=== PATIENT | female | born 1960 | race African-American/Black ===

== ENCOUNTER 2016-08-08 19:27 | Emergency (ER) | payer SELFPAY ==
[~2016-08-08] VITALS: Ht 167.6 cm; Wt 113.4 kg
[2016-08-08 20:05] VITALS: BP 133/75
[2016-08-08 20:30] LABS: BASOPHILS % (AUTO) 0.8 % (0.0-2.0); EOSINOPHILS % (AUTO) 5.6 % (0.0-3.0); LYMPHOCYTES % (AUTO) 39.5 % (20.0-45.0); MEAN CORPUSCULAR HEMOGLOBIN 27.7 PG (27.0-31.0); MEAN CORPUSCULAR HGB CONC 32.1 G/DL (32.0-36.0); MEAN CORPUSCULAR VOLUME 86 FL (80-99); MONOCYTES % (AUTO) 7.9 % (1.0-10.0); NEUTROPHILS % (AUTO) 46.2 % (45.0-75.0); PLATELET COUNT 217 K/UL (150-450); RED BLOOD COUNT 4.73 M/UL (4.20-5.40); RED CELL DISTRIBUTION WIDTH 12.6 % (11.6-14.8); WHITE BLOOD COUNT 5.4 K/UL (4.8-10.8)
[2016-08-08 20:40] LABS: TROPONIN I < 0.30 ng/mL (<=0.30)
[2016-08-08 20:43] LABS: ALANINE AMINOTRANSFERASE 10 U/L (3-33); ALBUMIN/GLOBULIN RATIO 1.3 (1.0-2.7); ANION GAP 15 (5-15); ASPARTATE AMINO TRANSFERASE 13 U/L (5-40); CARBON DIOXIDE 27 mEQ/L (20-30); CHLORIDE 99 mEQ/L (98-107); CREATININE 0.8 mg/dL (0.5-0.9); GLOMERULAR FILTRATION RATE > 60 mL/min (>60); HEMOLYSIS 3; POTASSIUM 4.2 mEQ/L (3.4-4.9); SODIUM 141 mEQ/L (135-145); TOTAL PROTEIN 7.5 g/dL (6.6-8.7)
[2016-08-08 20:53] LABS: CKMB < 1.5 ng/mL (< 3.8)
[2016-08-08] MEDS ORDERED: LORazepam Inj 2mg/ml 1ml ONE (21:19)
[2016-08-08 21:30] VITALS: BP 127/68
[2016-08-08] MEDS ORDERED: LORazepam Inj 2mg/ml 1ml IV ONE (21:30)
[2016-08-08] MEDS ORDERED: LORazepam Inj 2mg/ml 1ml IM ONE (21:30)
[2016-08-08 21:36] VITALS: BP 127/68
--- NOTE | 2016-08-08 21:49 | Emergency Room Report ---
History of Present Illness General Chief Complaint: General Complaint Source: Patient, EMS Present Illness HPI Patient presents with complaints of midsternal chest pain which she experienced earlier in the morning That sensation has resolved however the patient was complaining of tingling in her lower extremity Denies any shortness of breath or chest pain at this time denies any fall or trauma Denies any fevers or chills Allergies: Coded Allergies: No Known Allergies (Unverified , 08/08/16) Patient History Past Medical History: see triage record Pertinent Family History: none Now: No Reviewed Nursing Documentation: PMH: Agreed, PSxH: Agreed Nursing Documentation-PMH Past Medical History: No History, Except For Hx Hypertension: Yes Hx Asthma: Yes Hx Diabetes: Yes Hx Seizures: Yes Review of Systems All Other Systems: negative except mentioned in HPI Physical Exam Vital Signs Date Time Temp Pulse Resp B/P Pulse Ox O2 Delivery O2 Flow Rate FiO2 08/08/16 19:16 98.4 74 16 144/83 98 Room Air Sp02 EP Interpretation: reviewed, normal General Appearance: well appearing, no apparent distress Head: normocephalic, atraumatic Eyes: bilateral eye EOMI, bilateral eye PERRL ENT: normal pharynx, no angioedema Neck: supple, thyroid normal, other - Evidence of previous tracheostomy Respiratory: lungs clear, normal breath sounds Cardiovascular #1: regular rate, rhythm, no edema Gastrointestinal: non tender, soft, no mass Musculoskeletal: other - Patient is chronically debilitated, 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, both hands are flexed at the wrist, not moving lower extremities, chronically bedbound Neurologic: alert, oriented x3, responsive Skin: no rash Lymphatic: no adenopathy Medical Decision Making Diagnostic Impression: Primary Impression: chest pain ER Course Patient is a fairly complex patient with multiple differential to consideration including but not limited to cardiac cardiopulmonary and vascular emergencies Patient's blood work is at baseline levels Chest x-ray shows portal and cardiomegaly no other acute disease Patient's pain has been better controlled I did discuss the case with the patient's primary physician at nursing facility and the patient will have continued close outpatient followup Laboratory Tests Test 08/08/16 20:05 White Blood Count 5.4 K/UL (4.8-10.8) Red Blood Count 4.73 M/UL (4.20-5.40) Hemoglobin 13.1 G/DL (12.0-16.0) Hematocrit 40.8 % (37.0-47.0) Mean Corpuscular Volume 86 FL (80-99) Mean Corpuscular Hemoglobin 27.7 PG (27.0-31.0) Mean Corpuscular Hemoglobin Concent 32.1 G/DL (32.0-36.0) Red Cell Distribution Width 12.6 % (11.6-14.8) Platelet Count 217 K/UL (150-450) Mean Platelet Volume 9.0 FL (6.5-10.1) Neutrophils (%) (Auto) 46.2 % (45.0-75.0) Lymphocytes (%) (Auto) 39.5 % (20.0-45.0) Monocytes (%) (Auto) 7.9 % (1.0-10.0) Eosinophils (%) (Auto) 5.6 % (0.0-3.0) H Basophils (%) (Auto) 0.8 % (0.0-2.0) Sodium Level 141 mEQ/L (135-145) Potassium Level 4.2 mEQ/L (3.4-4.9) Chloride Level 99 mEQ/L (98-107) Carbon Dioxide Level 27 mEQ/L (20-30) Anion Gap 15 (5-15) Blood Urea Nitrogen 14 mg/dL (7-23) Creatinine 0.8 mg/dL (0.5-0.9) Estimat Glomerular Filtration Rate > 60 mL/min (>60) Glucose Level 112 mg/dL (74-106) H Calcium Level 10.0 mg/dL (8.6-10.2) Total Bilirubin < 0.2 mg/dL (0.0-1.2) Aspartate Amino Transf (AST/SGOT) 13 U/L (5-40) Alanine Aminotransferase (ALT/SGPT) 10 U/L (3-33) Alkaline Phosphatase 52 U/L (35-104) Total Creatine Kinase 168 U/L (26-140) H Creatine Kinase MB < 1.5 ng/mL (< 3.8) Creatine Kinase MB Relative Index Troponin I < 0.30 ng/mL (<=0.30) Total Protein 7.5 g/dL (6.6-8.7) Albumin 4.3 g/dL (3.5-5.2) Globulin 3.2 g/dL Albumin/Globulin Ratio 1.3 (1.0-2.7) EKG Diagnostic Results Rate: normal Rhythm: NSR ST Segments: other - Nonspecific ST and T-wave changes Rhythm Strip Diag. Results EP Interpretation: yes Rate: 77 Rhythm: NSR, no PVC's, no ectopy Chest X-Ray Diagnostic Results EP Interpretation: Yes Findings: no consolidation, no effusion, no pneumothorax, other - Cardiomegaly Number of Views: 1 Last Vital Signs Date Time Temp Pulse Resp B/P Pulse Ox O2 Delivery O2 Flow Rate FiO2 08/08/16 20:05 98.4 73 14 133/75 97 Room Air Status: improved Disposition: ER SNF Condition: Improved Referrals: MAYRA JACKSON (PCP) Patient Instructions: Nonspecific Chest Pain, [id number] Additional Instructions: Patient is provided with the discharge instructions notified to follow up with primary doctor in the next 2-3 days otherwise return to the er with any worsening symptoms. Please note that this report is being documented using [employer]ot technology. This can lead to erroneous entry secondary to incorrect interpretation by the dictating instrument. CHERRI RODRIGUEZ D.O. Aug 08, 2016 21:49
--- NOTE | 2016-08-09 10:12 | Diagnostic Imaging Report ---
Indication: Chest Pain Comparison: None A single view chest radiograph was obtained. Findings: No definite infiltrate or pulmonary vascular congestion identified. The heart is enlarged. The aorta is mildly enlarged consistent with atherosclerotic vascular disease. The bones are osteopenic. Impression: No acute disease
--- NOTE | 2016-08-10 15:14 | Cardiology Report ---
APPROVED REPORT EKG Measurement Heart [id number] Normal sinus rhythm Normal ECG
== END 2016-08-08 21:40 ==
LOC: EDBD 19:27 → EMR 20:22
DX: R07.9 Chest pain, unspecified (principal); E11.9 Type 2 diabetes mellitus without complications; J45.909 Unspecified asthma, uncomplicated; I10 Essential (primary) hypertension
CPT/HCPCS: 36415; 71010; 80053; 82550; 82553; 84484; 85025; 93005; 96372; 99283; J1170; J2550

== ENCOUNTER 2017-03-05 10:23 | Emergency (ER) | payer MEDICAID ==
[~2017-03-05] VITALS: Ht 170.2 cm; Wt 113.4 kg
[2017-03-05] MEDS ORDERED: ALBUTEROL2.5 MG/3 M INH (10:41)
[2017-03-05] MEDS ORDERED: CRANBERRY425 MG PO (10:41)
[2017-03-05] MEDS ORDERED: ATIVAN1 MG ORAL (10:41)
[2017-03-05] MEDS ORDERED: BENADRYL25 MG ORAL (10:41)
[2017-03-05] MEDS ORDERED: dulcolax RC (10:41)
[2017-03-05] MEDS ORDERED: FLEET ENEMA133 ML RECTAL (10:41)
[2017-03-05] MEDS ORDERED: ARTIFICIAL TEAR15 ML BOTH EYES (10:41)
[2017-03-05] MEDS ORDERED: KEPPRA1000 MG ORAL (10:41)
[2017-03-05] MEDS ORDERED: ASPIR 8181 MG ORAL (10:41)
[2017-03-05] MEDS ORDERED: DOCUSATE SODIU100 MG ORAL (10:41)
--- NOTE | 2017-03-05 10:51 | Emergency Room Report ---
History of Present Illness General Chief Complaint: Abdominal Pain Source: Patient, Medical Record Present Illness HPI 57-year-old female coming from jail, left-sided hemiparesis status post CVA, diabetes, history of gastrostomy (removed), ? Respiratory disease possible COPD on intermittent oxygen, P/w abdominal pain 1 day. Patient states that pain is localized to right lower quadrant chief, non radiating, earning in nature, intermittent. No relieving or exacerbating factors. Severity is 6/10. Patient states that she has nausea but no vomiting or diarrhea. Patient states that she has not passed gas today, last bowel movement was 2 days ago. History of abdominal surgeries except for gastrostomy tube which has not been removed Allergies: Coded Allergies: No Known Allergies (Unverified , 08/08/16) Patient History Past Medical History: see triage record Past Surgical History: none Pertinent Family History: none Reviewed Nursing Documentation: PMH: Agreed, PSxH: Agreed Nursing Documentation-PMH Hx Hypertension: Yes Hx Asthma: Yes Hx Diabetes: Yes Hx Gastrointestinal Problems: Yes - G-tube History Of Psychiatric Problem: Yes - AMS Hx Cerebrovascular Accident: Yes Hx Seizures: Yes Review of Systems All Other Systems: negative except mentioned in HPI Physical Exam Vital Signs Date Time Temp Pulse Resp B/P (MAP) Pulse Ox O2 Delivery O2 Flow Rate FiO2 03/05/17 10:26 98.2 79 18 113/78 96 Room Air Sp02 EP Interpretation: reviewed, normal General Appearance: alert, GCS 15, non-toxic, other - Middle aged female, appears to be in pain, hold of her conversing appropriately at bedside Head: normocephalic, atraumatic Eyes: bilateral eye normal inspection, bilateral eye PERRL, bilateral eye EOMI ENT: normal ENT inspection, normal pharynx, normal voice, moist mucus membranes Neck: normal inspection, full range of motion, supple Respiratory: normal inspection, lungs clear, normal breath sounds, no respiratory distress, no retraction, no wheezing, speaking full sentences, chest symmetrical Cardiovascular #1: normal inspection, regular rate, rhythm, no edema, normal capillary refill Cardiovascular #2: 2+ radial (R), 2+ radial (L) Gastrointestinal: soft, non-distended, no guarding, other - Tender to the right lower quadrant Musculoskeletal: normal inspection, back normal, normal range of motion, non- tender Neurologic: alert, oriented x3, responsive, other - Left-sided hemiparesis Psychiatric: normal inspection, judgement/insight normal, memory normal Skin: normal inspection, normal color, no rash, warm/dry, well hydrated, normal turgor Medical Decision Making Diagnostic Impression: Primary Impression: Constipation Additional Impression: Abdominal pain ER Course 57-year-old female with abdominal pain Differential Diagnosis: Gastritis, gastroenteritis, cholecystitis, appendicitis, diverticulitis, SBO, mesenteric ischemia, UTI/pyelo Plan: Basic labs, ua, ekg CT abdopelvis ER course: Patient has been monitored during ED stay, HD stable CT abdo pelvis negative for acute pathology, labs are normal, CT only showing constipation however patient has had multiple BM in ED after contrast repeat abd exam benign not requiring any pain meds I d/w patient's PMD over the phone, will dc back to OR. Disposition: Pt to be DCed back to OR Please note that this Emergency Department Report was dictated using Cueclient support representative technology software, occasionally this can lead to erroneous entry secondary to interpretation by the dictation equipment. Laboratory Tests Test 03/05/17 10:45 White Blood Count 5.7 K/UL (4.8-10.8) Red Blood Count 4.80 M/UL (4.20-5.40) Hemoglobin 13.5 G/DL (12.0-16.0) Hematocrit 42.7 % (37.0-47.0) Mean Corpuscular Volume 89 FL (80-99) Mean Corpuscular Hemoglobin 28.2 PG (27.0-31.0) Mean Corpuscular Hemoglobin Concent 31.7 G/DL (32.0-36.0) L Red Cell Distribution Width 12.9 % (11.6-14.8) Platelet Count 223 K/UL (150-450) Mean Platelet Volume 8.6 FL (6.5-10.1) Neutrophils (%) (Auto) 57.2 % (45.0-75.0) Lymphocytes (%) (Auto) 31.7 % (20.0-45.0) Monocytes (%) (Auto) 6.8 % (1.0-10.0) Eosinophils (%) (Auto) 3.5 % (0.0-3.0) H Basophils (%) (Auto) 0.9 % (0.0-2.0) Sodium Level 139 mEQ/L (135-145) Potassium Level 4.6 mEQ/L (3.4-4.9) Chloride Level 100 mEQ/L (98-107) Carbon Dioxide Level 26 mEQ/L (20-30) Anion Gap 13 (5-15) Blood Urea Nitrogen 15 mg/dL (7-23) Creatinine 0.9 mg/dL (0.5-0.9) Estimate Glomerular Filtration Rate > 60 mL/min (>60) Glucose Level 108 mg/dL (74-106) H Lactic Acid Level 1.20 mmol/L (0.66-2.22) Calcium Level 10.0 mg/dL (8.6-10.2) Total Bilirubin 0.3 mg/dL (0.0-1.2) Aspartate Amino Transferase (AST) 15 U/L (5-40) Alanine Aminotransferase (ALT) 9 U/L (3-33) Alkaline Phosphatase 55 U/L (35-104) Total Protein 8.0 g/dL (6.6-8.7) Albumin 5.4 g/dL (3.5-5.2) H Globulin 2.6 g/dL Albumin/Globulin Ratio 2.0 (1.0-2.7) Lipase 24 U/L (< 60) EKG Diagnostic Results Rate: normal Rhythm: NSR ST Segments: other - L axis. no STT changes ASA given to the pt in ED: No Rhythm Strip Diag. Results EP Interpretation: yes Rate: 77 Rhythm: NSR, no PVC's, no ectopy Chest X-Ray Diagnostic Results Chest X-Ray Diagnostic Results : Chest X-Ray Ordered: Yes # of Views/Limited/Complete: 1 View Indication: Other EP Interpretation: Yes Interpretation: other - borderline cardiomegaly Impression: Other - Borderline cardiomegaly no acute process Electronically Signed by: Electronically signed by Malena Rojas MD CT/MRI/US Diagnostic Results CT/MRI/US Diagnostic Results : Imaging Test Ordered: CT abdo pelvis Impression Impression: Evidence of rectal fecal impaction No acute abdominal or pelvic process otherwise Bilateral lower lobe consolidation. This could represent edema or pneumonia, among other possibilities. Left-sided subpleural bleb versus bulla Cholelithiasis Inferior vena cava filter, appears to be in good position Other findings as noted, including degenerative spondylosis, and uterine calcifications likely representing old fibroids Electronically sign by Malena Rojas MD Last Vital Signs Date Time Temp Pulse Resp B/P (MAP) Pulse Ox O2 Delivery O2 Flow Rate FiO2 03/05/17 10:26 98.2 79 18 113/78 96 Room Air Disposition: XFER SNF Condition: Improved Patient Instructions: Abdominal Pain, Adult, Constipation, Adult, [id number] Malena Rojas M.D. Mar 05, 2017 10:51
[2017-03-05] MEDS ORDERED: ACETAMINOP160 MG/51 ORAL (11:01)
[2017-03-05] MEDS ORDERED: MILK OF MA2400 MG/10 ORAL (11:01)
[2017-03-05] MEDS ORDERED: LABETALOL H5 MG/1 M1 PO (11:01)
[2017-03-05] MEDS ORDERED: NITROGLYCERIN0.4 MG SL (11:01)
[2017-03-05] MEDS ORDERED: MULTIVITAMINS1 EAC8 ORAL (11:01)
[2017-03-05] MEDS ORDERED: MINOXIDIL2.5 MG PO (11:01)
[2017-03-05] MEDS ORDERED: ALUM-MAG HYDRO360 ML PO (11:01)
[2017-03-05] MEDS ORDERED: TUMS DUAL ACTI1 EACH PO (11:01)
[2017-03-05] MEDS ORDERED: ZYRTEC10 MG ORAL (11:01)
[2017-03-05] MEDS ORDERED: LISINOPRIL10 MG ORAL (11:01)
[2017-03-05] MEDS ORDERED: NORCO 5-325 TA1 EAC1 ORAL (11:01)
[2017-03-05] MEDS ORDERED: NOVOLIN N100 UNIT/1 SUBQ (11:01)
[2017-03-05] MEDS ORDERED: ZOFRAN ODT4 MG ORAL (11:01)
[2017-03-05] MEDS ORDERED: MELATONIN5 M6 PO (11:02)
[2017-03-05 11:55] VITALS: BP 118/50
[2017-03-05 11:55] LABS: BASOPHILS % (AUTO) 0.9 % (0.0-2.0); EOSINOPHILS % (AUTO) 3.5 % (0.0-3.0); LYMPHOCYTES % (AUTO) 31.7 % (20.0-45.0); MEAN CORPUSCULAR HEMOGLOBIN 28.2 PG (27.0-31.0); MEAN CORPUSCULAR HGB CONC 31.7 G/DL (32.0-36.0); MEAN CORPUSCULAR VOLUME 89 FL (80-99); MEAN PLATELET VOLUME 8.6 FL (6.5-10.1); MONOCYTES % (AUTO) 6.8 % (1.0-10.0); NEUTROPHILS % (AUTO) 57.2 % (45.0-75.0); PLATELET COUNT 223 K/UL (150-450); RED CELL DISTRIBUTION WIDTH 12.9 % (11.6-14.8); WHITE BLOOD COUNT 5.7 K/UL (4.8-10.8)
--- NOTE | 2017-03-05 12:04 | Diagnostic Imaging Report ---
Indication: Chest pain Technique: One view of the chest Comparison: 08/08/2016 Findings: Lungs and pleural spaces are clear. Heart is mildly enlarged. Impression: Borderline cardiomegaly. No acute process
[2017-03-05 12:05] LABS: ALANINE AMINOTRANSFERASE 9 U/L (3-33); ANION GAP 13 (5-15); ASPARTATE AMINO TRANSFERASE 15 U/L (5-40); CARBON DIOXIDE 26 mEQ/L (20-30); CHLORIDE 100 mEQ/L (98-107); CREATININE 0.9 mg/dL (0.5-0.9); GLOMERULAR FILTRATION RATE > 60 mL/min (>60); HEMOLYSIS 3; LIPASE 24 U/L (< 60); POTASSIUM 4.6 mEQ/L (3.4-4.9); SODIUM 139 mEQ/L (135-145)
[2017-03-05 12:55] VITALS: BP 102/50
--- NOTE | 2017-03-05 13:30 | Diagnostic Imaging Report ---
Clinical Indication: PAIN right lower quadrant pain nonradiating burning in nature, intermittent, severity 6/10, nausea Technique: Patient given oral contrast. IV administration nonionic contrast. Venous phase spiral acquisition obtained through the abdomen and pelvis. Multiplanar reconstructions were generated. Total dose length product 1135 mGycm. CTDIvol(s) 18 mGy. Dose reduction achieved using automated exposure control Comparison: None Findings: The rectum is distended with stool. It measures 10 x 13 cm in diameter. There is no evidence of diverticulosis or diverticulitis. The appendix is normal. No small bowel distention. No small bowel wall thickening. No free or loculated intraperitoneal air or fluid is evident. Distal esophagus, stomach, duodenum are unremarkable. The gallbladder contains multiple gallstones. There is no biliary ductal dilatation. The liver, pancreas, spleen, adrenals, kidneys are unremarkable. No retroperitoneal or mesenteric mass or adenopathy. The uterus demonstrates calcifications. No adnexal mass. No pelvic mass or adenopathy. There is an inferior vena cava filter, which is in satisfactory position within the inferior vena cava, slight leftward tilt, no evidence of strut perforation. The inferior vena cava appears to be patent. The included lung bases demonstrate fairly extensive lower lobe consolidation bilaterally. There is a subpleural bleb or bulla on the left. The bones demonstrate mild degenerative spondylosis changes. Impression: Evidence of rectal fecal impaction No acute abdominal or pelvic process otherwise Bilateral lower lobe consolidation. This could represent edema or pneumonia, among other possibilities. Left-sided subpleural bleb versus bulla Cholelithiasis Inferior vena cava filter, appears to be in good position Other findings as noted, including degenerative spondylosis, and uterine calcifications likely representing old fibroids The CT scanner at [facility] is accredited by the [employer] and the scans are performed using protocols designed to limit radiation exposure to as low as reasonably achievable to attain images of sufficient resolution adequate for diagnostic evaluation.
[2017-03-05 13:55] VITALS: BP 100/70
[2017-03-05 15:45] VITALS: BP_SYST 108; BP_DIAS 40; BP_DIAS 65
== END 2017-03-05 15:45 ==
LOC: EDBD 10:23 → EMR 11:15 → CANBEDREQ 14:01 → EMR 15:45
DX: K59.00 Constipation, unspecified (principal); R10.9 Unspecified abdominal pain; G81.94 Hemiplegia, unspecified affecting left nondominant side; I10 Essential (primary) hypertension; E11.9 Type 2 diabetes mellitus without complications; Z86.73 Personal history of transient ischemic attack (TIA), and cerebral infarction without residual deficits; I51.7 Cardiomegaly; K80.20 Calculus of gallbladder without cholecystitis without obstruction
CPT/HCPCS: 36415; 71010; 74177; 80053; 82962; 83605; 83690; 85025; 87040; 93005; 96360; 99284; Q9967

== ENCOUNTER 2019-02-19 13:47 | Inpatient (IN) | payer MEDICAID ==
[~2019-02-19] VITALS: Ht 162.6 cm; Wt 116.0 kg
[~2019-02-19 13:47] MED LIST: ACETAMINOP160 MG/51 ORAL; ALBUTEROL2.5 MG/3 M INH; ALUM-MAG HYDRO360 ML PO; ARTIFICIAL TEAR15 ML BOTH EYES; ASPIR 8181 MG ORAL; ATIVAN1 MG ORAL; BENADRYL25 MG ORAL; CRANBERRY425 MG PO; DOCUSATE SODIU100 MG ORAL; FLEET ENEMA133 ML RECTAL; KEPPRA1000 MG ORAL; LABETALOL H5 MG/1 M1 PO; LISINOPRIL10 MG ORAL; MELATONIN5 M6 PO; MILK OF MA2400 MG/10 ORAL; MINOXIDIL2.5 MG PO; MULTIVITAMINS1 EAC8 ORAL; NITROGLYCERIN0.4 MG SL; NORCO 5-325 TA1 EAC1 ORAL; NOVOLIN N100 UNIT/1 SUBQ; TUMS DUAL ACTI1 EACH PO; ZOFRAN ODT4 MG ORAL; ZYRTEC10 MG ORAL; dulcolax RC
--- NOTE | 2019-02-19 13:57 | Emergency Room Report ---
History of Present Illness General Chief Complaint: Chest Pain Source: Patient, Medical Record Present Illness HPI Disclaimer: Please note that this report is being documented using DRAGON technology. This can lead to erroneous entry secondary to incorrect interpretation by the dictating instrument. HPI: 59-year-old female with a history of hypertension, hyperlipidemia, diabetes , obesity, CVA with residual left-sided weakness, COPD on intermittent oxygen, seizure disorder presents for evaluation of chest pain. Patient was at rest laying down resting approximately 1.5 hours ago when she began to feel left- sided squeezing chest pain and mild shortness of breath. The pain does not radiate. Is associated with nausea but denies diaphoresis, lightheadedness, palpitations. No prior similar episodes of chest pain. Has never had a cardiac work-up according to patient. Unsure about stress test or echoes. Denies history of CHF. Has been compliant with all her medications. Does not take a daily aspirin. Patient was found with soft blood pressures by EMS on initial evaluation with systolics in the 90s. They have been slowly improving according to them. PMH: Obesity, diabetes, hypertension, hyperlipidemia, CVA, seizure disorder, COPD PSH: Tracheostomy reversed, gastrostomy reversed Allergies: None listed Social Hx: Former smoker Allergies: Coded Allergies: No Known Allergies (Unverified , 08/08/16) Nursing Documentation-PMH Past Medical History: No History, Except For Hx Hypertension: Yes - DVT Hx Asthma: Yes Hx Diabetes: Yes Hx Gastrointestinal Problems: Yes - G-tube, dysphagia History Of Psychiatric Problem: Yes - Major depression Hx Neurological Problems: Yes - AMS Hx Cerebrovascular Accident: Yes - left side Hx Seizures: Yes Review of Systems All Other Systems: negative except mentioned in HPI Physical Exam Vital Signs Date Time Temp Pulse Resp B/P (MAP) Pulse Ox O2 Delivery O2 Flow Rate FiO2 02/19/19 13:48 98.4 78 18 95/78 (84) 98 Room Air General: Awake and alert, no acute distress HEENT: NC/AT. EOMI. PERRLA. Moist mucous membranes Neck: Supple, trachea midline tracheostomy scar well-healed Chest Wall: No tenderness, no deformity Cardiovascular: Heart sounds are distant secondary to body habitus. RRR. S1 and S2 normal. No murmur appreciated Resp: Normal work of breathing. No cough, wheezing or crackles appreciated Abdomen: Abdomen is soft, nondistended, morbidly obese. Nontender Skin: Intact. No abrasions, laceration or rash over the exposed skin MSK: Normal tone and bulk. Moving all extremities. No obvious deformity. No lower extremity edema Neuro: Awake and alert. Mentating appropriately. Medical Decision Making Diagnostic Impression: Primary Impression: Chest pain ER Course 59-year-old female with multiple risk factors presents for evaluation of squeezing chest pain beginning approximate 1.5 hours ago. Differential includes but is not limited to angina, ACS, arrhythmia, CHF, COPD, anxiety, pneumonia, bronchitis, pneumothorax. We will start broad metabolic, infectious and cardiac work-up. EKG, chest x-ray and lab work ordered. Patient will be given aspirin and sublingual nitroglycerin. Laboratory Tests Test 02/19/19 14:05 White Blood Count 5.4 K/UL (4.8-10.8) Red Blood Count 4.07 M/UL (4.20-5.40) L Hemoglobin 11.8 G/DL (12.0-16.0) L Hematocrit 35.3 % (37.0-47.0) L Mean Corpuscular Volume 87 FL (80-99) Mean Corpuscular Hemoglobin 29.0 PG (27.0-31.0) Mean Corpuscular Hemoglobin Concent 33.5 G/DL (32.0-36.0) Red Cell Distribution Width 12.4 % (11.6-14.8) Platelet Count 223 K/UL (150-450) Mean Platelet Volume 7.3 FL (6.5-10.1) Neutrophils (%) (Auto) 46.5 % (45.0-75.0) Lymphocytes (%) (Auto) 38.5 % (20.0-45.0) Monocytes (%) (Auto) 8.4 % (1.0-10.0) Eosinophils (%) (Auto) 5.6 % (0.0-3.0) H Basophils (%) (Auto) 1.0 % (0.0-2.0) Prothrombin Time 10.1 SEC (9.30-11.50) Prothrombin Time INR 0.9 (0.9-1.1) PTT 26 SEC (23-33) Sodium Level 145 MMOL/L (136-145) Potassium Level 4.9 MMOL/L (3.5-5.1) Chloride Level 107 MMOL/L (98-107) Carbon Dioxide Level 28 MMOL/L (21-32) Anion Gap 10 mmol/L (5-15) Blood Urea Nitrogen 16 mg/dL (7-18) Creatinine 0.9 MG/DL (0.55-1.30) Estimate Glomerular Filtration Rate > 60 mL/min (>60) Glucose Level 96 MG/DL (74-106) Calcium Level 10.0 MG/DL (8.5-10.1) Total Bilirubin 0.2 MG/DL (0.2-1.0) Aspartate Amino Transferase (AST) 14 U/L (15-37) L Alanine Aminotransferase (ALT) 13 U/L (12-78) Alkaline Phosphatase 47 U/L (46-116) Total Creatine Kinase 154 U/L (26-308) Creatine Kinase MB 0.6 NG/ML (0.0-3.6) Creatine Kinase MB Relative Index 0.3 Troponin I 0.000 ng/mL (0.000-0.056) Pro-B-Type Natriuretic Peptide 24 pg/mL (0-125) Total Protein 7.6 G/DL (6.4-8.2) Albumin 4.0 G/DL (3.4-5.0) Globulin 3.6 g/dL Albumin/Globulin Ratio 1.1 (1.0-2.7) EKG Diagnostic Results EKG Time: 14:00 Rate: normal Rhythm: NSR ST Segments: no acute changes Other Impression Sinus rhythm, borderline left axis, normal intervals, no ST segment changes. ASA given to the pt in ED: Yes Rhythm Strip Diag. Results Rhythm Strip Time: 14:00 EP Interpretation: yes Rate: 70s Rhythm: NSR Chest X-Ray Diagnostic Results Chest X-Ray Diagnostic Results : # of Views/Limited/Complete: 1 View Indication: Chest Pain EP Interpretation: Yes PA Xray: Interpretation reviewed Interpretation: other - Cardiomegaly, bilateral vascular congestion. No obvious infiltrate., No effusion., No pneumothorax Impression: Other - Cardiomegaly otherwise no consolidation or major effusion. Bilateral pulmonary congestion Reevaluation Time: 16:03 Last Vital Signs Date Time Temp Pulse Resp B/P (MAP) Pulse Ox O2 Delivery O2 Flow Rate FiO2 02/19/19 13:48 98.4 78 18 95/78 (84) 98 Room Air Status: improved Reevaluation Impression Patient is slight drop in blood pressure to the low 90s after ministration of nitroglycerin. She still complains of some left-sided chest pressure that does not radiate and mild shortness of breath but is refusing any further nitroglycerin or morphine at this time. Vital signs are stable and patient has no tachycardia and is saturating 99% on room air. Labs have returned largely within normal limits. First troponin is negative. Given the patient's multiple risk factors and age she can will be admitted for chest pain work-up. Discussed with her PMD who is at the admitting physician. She did receive aspirin on arrival. Disposition: ADMITTED INPATIENT Condition: Serious Gio Rascon MD Feb 19, 2019 13:57
[2019-02-19 14:00] VITALS: BP 95/78
[2019-02-19] MEDS ORDERED: Nitroglycerin Subl 0.4mg tab SL PRN (14:00)
[2019-02-19] MEDS ORDERED: Aspirin Baby 81mg ORAL ONE (14:00)
[2019-02-19] MEDS ORDERED: NOVOLIN N100 UNIT/1 SUBQ (14:20)
[2019-02-19] MEDS ORDERED: RESTORIL15 MG ORAL (14:20)
[2019-02-19] MEDS ORDERED: Morphine Sulfate 2mg/ml Inj(IV/IM USE ONLY) IVP ONE (14:30)
[2019-02-19 14:53] LABS: ANION GAP 10 mmol/L (5-15); BLOOD UREA NITROGEN 16 mg/dL (7-18); CARBON DIOXIDE 28 MMOL/L (21-32); CHLORIDE 107 MMOL/L (98-107); CREATININE 0.9 MG/DL (0.55-1.30); POTASSIUM 4.9 MMOL/L (3.5-5.1); SODIUM 145 MMOL/L (136-145)
[2019-02-19 14:57] LABS: EOSINOPHILS % (AUTO) 5.6 % (0.0-3.0); HEMATOCRIT 35.3 % (37.0-47.0); HEMOGLOBIN 11.8 G/DL (12.0-16.0); LYMPHOCYTES % (AUTO) 38.5 % (20.0-45.0); MEAN CORPUSCULAR VOLUME 87 FL (80-99); MONOCYTES % (AUTO) 8.4 % (1.0-10.0); NEUTROPHILS % (AUTO) 46.5 % (45.0-75.0); PLATELET COUNT 223 K/UL (150-450); RED BLOOD COUNT 4.07 M/UL (4.20-5.40); RED CELL DISTRIBUTION WIDTH 12.4 % (11.6-14.8); WHITE BLOOD COUNT 5.4 K/UL (4.8-10.8)
[2019-02-19 15:07] LABS: INR 0.9 (0.9-1.1)
--- NOTE | 2019-02-19 15:08 | Diagnostic Imaging Report ---
Indication: Chest pain Technique: One view of the chest Comparison: 03/05/2017 Findings: Heart is borderline enlarged. There is atelectasis or scarring at the left lateral lung base. Lungs and pleural spaces are otherwise clear. Findings are unchanged Impression: Borderline cardiomegaly. No definite acute process
[2019-02-19 15:09] LABS: ALANINE AMINOTRANSFERASE 13 U/L (12-78); ALBUMIN/GLOBULIN RATIO 1.1 (1.0-2.7); ALKALINE PHOSPHATASE 47 U/L (46-116); ASPARTATE AMINO TRANSFERASE 14 U/L (15-37); BILIRUBIN,TOTAL 0.2 MG/DL (0.2-1.0); CKMB 0.6 NG/ML (0.0-3.6); CREATINE KINASE 154 U/L (26-308)
[2019-02-19 15:44] VITALS: BP 96/54
[2019-02-19 16:53] VITALS: BP 111/51
[2019-02-19 19:05] VITALS: BP 124/67
[2019-02-19 20:00] VITALS: BP 101/64
[2019-02-19] MEDS ORDERED: LORazepam 1mg tab ORAL PRN (20:30)
[2019-02-19] MEDS ORDERED: Milk of Magnesia 30ml Ud ORAL PRN (20:30)
[2019-02-19] MEDS ORDERED: Albuterol ud Inhalation HHN PRN (20:30)
[2019-02-19] MEDS ORDERED: Mylanta II UD 30ml ORAL PRN (20:30)
[2019-02-19] MEDS ORDERED: Fleet's Enema 133ml RECTAL PRN (20:30)
[2019-02-19] MEDS ORDERED: Artificial Tears 1.4% Op Soln BOTH EYES PRN (22:00)
[2019-02-19] MEDS: Minoxidil 2.5mg tab ORAL SCH (22:30)
[2019-02-20] VITALS: BP 98/54
[2019-02-20 04:00] VITALS: BP 112/61
[2019-02-20] MEDS: NovoLOG Insulin Flexpen SUBQ SCH ×4 (06:30→21:00)
[2019-02-20 06:33] LABS: EOSINOPHILS % (AUTO) 4.7 % (0.0-3.0); HEMATOCRIT 34.4 % (37.0-47.0); HEMOGLOBIN 11.2 G/DL (12.0-16.0); LYMPHOCYTES % (AUTO) 39.4 % (20.0-45.0); MEAN CORPUSCULAR VOLUME 88 FL (80-99); MONOCYTES % (AUTO) 9.1 % (1.0-10.0); NEUTROPHILS % (AUTO) 45.8 % (45.0-75.0); PLATELET COUNT 203 K/UL (150-450); RED BLOOD COUNT 3.89 M/UL (4.20-5.40); RED CELL DISTRIBUTION WIDTH 12.3 % (11.6-14.8); WHITE BLOOD COUNT 5.5 K/UL (4.8-10.8)
[2019-02-20 06:50] LABS: ALANINE AMINOTRANSFERASE 12 U/L (12-78); ALBUMIN 3.6 G/DL (3.4-5.0); ALBUMIN/GLOBULIN RATIO 0.9 (1.0-2.7); ALKALINE PHOSPHATASE 47 U/L (46-116); ANION GAP 11 mmol/L (5-15); ASPARTATE AMINO TRANSFERASE 14 U/L (15-37); BILIRUBIN,TOTAL 0.4 MG/DL (0.2-1.0); BLOOD UREA NITROGEN 15 mg/dL (7-18); CALCIUM 9.7 MG/DL (8.5-10.1); CARBON DIOXIDE 25 MMOL/L (21-32); CHLORIDE 106 MMOL/L (98-107); POTASSIUM 4.4 MMOL/L (3.5-5.1); SODIUM 142 MMOL/L (136-145)
[2019-02-20 08:00] VITALS: BP 120/70
[2019-02-20] MEDS ORDERED: Docusate 100mg cap ORAL SCH (09:00)
[2019-02-20] MEDS ORDERED: Aspirin EC 81mg tab ORAL SCH (09:00)
[2019-02-20] MEDS: Minoxidil 2.5mg tab ORAL SCH ×2 (09:26→20:39)
[2019-02-20] MEDS: Multivitamin w/Minerals tab ORAL SCH (09:26)
[2019-02-20] MEDS: Heparin 5000 units/ml inj SUBQ SCH ×2 (09:28→20:50)
[2019-02-20] MEDS: Aspirin Baby 81mg ORAL SCH (09:53)
[2019-02-20] MEDS: Insulin NPH SUBQ SCH (09:54)
[2019-02-20] MEDS: Docusate 100mg tablet ORAL SCH ×2 (09:54→17:22)
[2019-02-20 12:00] VITALS: BP 105/70
[2019-02-20 16:00] VITALS: BP 107/79
[2019-02-20] MEDS ORDERED: GERI-LANTA LIQ355 ML PO (18:53)
[2019-02-20] MEDS ORDERED: LABETALOL HCL300 MG ORAL (18:53)
[2019-02-20] MEDS ORDERED: MELATONIN3 MG ORAL (18:58)
[2019-02-20 20:00] VITALS: BP_SYST 101; BP_SYST 147; BP_DIAS 73; BP_DIAS 78
[2019-02-20] MEDS: HYDROcodone/Acetamin 5/325 tab ORAL PRN (20:56)
[2019-02-21] VITALS: BP 122/68
--- NOTE | 2019-02-21 01:00 | Progress Note ---
DATE: 02/20/2019 CARDIOLOGY PROGRESS NOTE SUBJECTIVE: The patient has no new complaints. No shortness of breath noted. Some chest discomfort noted on the chest and abdomen. OBJECTIVE: VITAL SIGNS: Blood pressure 107/79, pulse 75, and respirations 18. Oxygen saturation 96% to 99% on 2 liters. LUNGS: Diminished breath sounds. CARDIAC: Regular rhythm and rate. Normal S1, S2. ABDOMEN: Soft. Obese. EXTREMITIES: Without edema. LABORATORY AND DIAGNOSTIC DATA: 2-D echocardiogram revealed normal ejection fraction with mild aortic insufficiency and concentric left ventricular hypertrophy. Venous duplex scan was negative for DVT. The troponin levels are negative x3. Chest x-ray yesterday revealed no acute process. IMPRESSION: 1. Noncardiac chest pain. 2. Low normal blood pressure range. 3. History of dysphagia with G-tube. 4. History of tracheostomy. 5. History of hypertension. 6. History of cerebrovascular accident. PLAN: 1. Swallow evaluation. 2. DVT prophylaxis. 3. Anti-platelet therapy. 4. No additional cardiovascular studies presently indicated. 5. Decrease minoxidil dose in view of low range blood pressure. Jason Turner M.D. DR: BILL JOB#: [id number] CC:
--- NOTE | 2019-02-21 01:15 | Consultation ---
DATE OF CONSULTATION: 02/19/2019 CARDIOLOGY CONSULTATION CONSULTING PHYSICIAN: Jason Turner M.D. REFERRING PHYSICIAN: Blade Ngo M.D. REASON FOR CONSULTATION: Chest pain. HISTORY OF PRESENT ILLNESS: This is a 59-year-old female. She lives in a correction facility. She has limitations due to her prior stroke with left-sided hemiparesis. She has advanced cardiopulmonary disease. She presented to the emergency room with one and a half hours of squeezing left-sided chest pain and shortness of breath. The pain was sharp, nonradiating and not associated with any other symptoms other than noted above. The patient denies any prior history of cardiac disease. She usually has a high blood pressure and is on several antihypertensives, but was noted to have a low blood pressure on arrival to the hospital. PAST MEDICAL HISTORY: Hyperlipidemia, hypertension, type 2 diabetes mellitus, obesity, CVA with left hemiparesis, COPD, history of hypoxia, seizure disorder, history of tracheostomy, and history of gastrostomy. History of DVT and history of major depression. SOCIAL HISTORY: No alcohol or substance abuse. Prior smoking history. ALLERGIES: None known. MEDICATIONS: Reviewed and reconciled. REVIEW OF SYSTEMS: A 10-point review of systems performed, all systems negative other than noted above. PHYSICAL EXAMINATION: GENERAL: Moderately obese, in no acute distress. VITAL SIGNS: Blood pressure 95/78, pulse 78, and respirations 18. HEENT: Healed trach scar. No accessory muscle use. LUNGS: Diminished breath sounds. CARDIAC: Regular rhythm and rate. Diminished S1 and S2. No murmur. ABDOMEN: Obese and soft. EXTREMITIES: Without edema. Right calf tenderness. DIAGNOSTIC DATA: EKG with sinus rhythm, no acute abnormalities. Troponin is negative. Remaining labs are reviewed. Chest x-ray with no acute process. Borderline cardiomegaly. Pro-natriuretic peptide is 24. IMPRESSION: Low clinical suspicion for acute coronary insufficiency, more likely suspect acute GI or pleuritic etiology in view of her body habitus and history of DVT with possible pulmonary embolic event should be considered as well. RECOMMENDATIONS: 1. Cardiac monitoring. 2. Serial troponin. 3. Hold parameters for antihypertensives. Hold the majority of her antihypertensives and resume in a stepwise fashion. 4. Antiplatelet therapy. 5. Echocardiogram, D-dimers and venous duplex scan. 6. Consideration for further V/Q imaging of the lung to follow. Jason Turner M.D. DR: BILL JOB#: [id number] CC:
[2019-02-21 04:00] VITALS: BP 105/60
--- NOTE | 2019-02-21 04:15 | History and Physical Report ---
DATE OF ADMISSION: 02/19/2019 REASON FOR ADMISSION: Chest pain. HISTORY OF PRESENT ILLNESS: The patient is a 59-year-old female with history of multiple medical problems including CVA and left-sided weakness, history of respiratory failure. The patient presents for evaluation of chest pain. The patient was noted to have pain, squeezing but the patient notes the pain is nonradiating. The patient has not had recent cardiac workup and now admitted for further evaluation and intervention. The patient's laboratory data obtained and chemistry is notable for negative troponins. At this time, the patient's findings reviewed and discussed. PAST MEDICAL HISTORY: Notable for respiratory failure, tracheostomy, history of diabetes, hypertension, hyperlipidemia, CVA with focal weakness, seizures, COPD, G-tube reversed, tracheostomy reversed. MEDICATIONS: Reviewed. ALLERGIES: Reviewed. SOCIAL HISTORY: The patient is essentially bedbound. Resides at [place] PHYSICAL EXAMINATION: GENERAL: This is a well-developed female. VITAL SIGNS: Blood pressure 132/80, pulse 75, respiratory rate 20, temperature 98.1. HEENT: Negative. NECK: Supple. No adenopathy. LUNGS: Moderate breath sounds and symmetric. CARDIAC: S1, S2. Regular rate and rhythm. ABDOMEN: Soft and nontender. EXTREMITIES: No cyanosis, clubbing, or edema. LABORATORY DATA: All reviewed. Electrolytes fairly negative. CBC essentially negative. Troponins are all negative. IMPRESSION: 1. Chest pain. 2. Prolonged psychiatric history. 3. CVA with left-sided weakness. 4. COPD on oxygen. 5. Psychiatric history, agitation. 6. Seizure disorder. RECOMMENDATIONS: Supportive care. Likely can discharge back to skilled facility for ongoing monitoring, no evidence of chest pain presently. The patient appears to be otherwise comfortable at present Blade Ngo M.D. DR: Desirae JOB#: [id number] CC: ANUSHA
[2019-02-21] MEDS: NovoLOG Insulin Flexpen SUBQ SCH ×4 (06:30→21:00)
[2019-02-21 08:00] VITALS: BP 138/70
[2019-02-21] MEDS: Aspirin Baby 81mg ORAL SCH (08:46)
[2019-02-21] MEDS: Docusate 100mg tablet ORAL SCH ×2 (08:47→17:53)
[2019-02-21] MEDS: Multivitamin w/Minerals tab ORAL SCH (08:47)
[2019-02-21] MEDS: Lisinopril 10mg tab ORAL SCH ×2 (08:50→17:53)
[2019-02-21] MEDS: Labetalol 200mg tab ORAL SCH ×2 (08:50→21:00)
[2019-02-21] MEDS: Heparin 5000 units/ml inj SUBQ SCH ×2 (08:53→21:07)
[2019-02-21] MEDS ORDERED: Minoxidil 2.5mg tab ORAL SCH (09:00)
[2019-02-21] MEDS: Insulin NPH SUBQ SCH (11:53)
[2019-02-21 12:00] VITALS: BP 105/63
--- NOTE | 2019-02-21 13:17 | Cardiology Report ---
APPROVED REPORT EXAM: Two-dimensional and M-mode echocardiogram with Doppler and color Doppler. INDICATION Angina pectoris M-Mode DIMENSIONS IVSd1.2 (0.7-1.1cm)Left Atrium (MM)3.6 (1.6-4.0cm) LVDd5.2 (3.5-5.6cm)Aortic Root2.6 (2.0-3.7cm) PWd1.1 (0.7-1.1cm)Aortic Cusp Exc.1.6 (1.5-2.0cm) LVDs3.0 (2.5-4.0cm) PWs1.3 cm Normal left ventricular chamber size, systolic function and wall motion. Left ventricular ejection fraction estimated to be 60-65 %. Mild left ventricular hypertrophy by 2-D. Small posterior pericardial effusion. All other cardiac chamber sizes are within normal limits. Focal aortic valve sclerosis with adequate cusp excursion. Thickened mitral valve leaflets with normal excursion. Mitral annulus and aortic root calcification. Pulmonic valve not well visualized. Normal tricuspid valve structure. IVC measured at 2.0 cm with slight physiologic collapse suggestive of increased RA pressure. A color flow and spectral Doppler study was performed and revealed: Mild aortic regurgitation. Trace mitral regurgitation. Mitral diastolic velocities suggest reduced left ventricular relaxation c/w mild LV diastolic dysfunction (Grade I). Trace tricuspid regurgitation. Tricuspid systolic velocities suggests peak right ventricular systolic pressure of 27 mmHg.
[2019-02-21 20:00] VITALS: BP 101/57
[2019-02-21] MEDS: HYDROcodone/Acetamin 5/325 tab ORAL PRN (21:06)
--- NOTE | 2019-02-21 23:00 | Progress Note ---
DATE: 02/21/2019 CARDIOLOGY PROGRESS NOTE SUBJECTIVE: Condition unchanged. No new distress. Vital signs stable. Discharge planning in progress. OBJECTIVE: VITAL SIGNS: Blood pressure 105/63, pulse 72, respiratory rate 18, and afebrile. LUNGS: Diminished breath sounds. No wheezing. CARDIAC: Regular rhythm and rate. Normal S1, S2. No new murmur. ABDOMEN: Soft, obese. EXTREMITIES: Without edema. DIAGNOSTIC DATA: Echocardiogram as previously noted was unremarkable. IMPRESSION: 1. Noncardiac chest pain. 2. Stable low normal blood pressure range. 3. History of CVA. 4. History of tracheostomy. 5. History of G-tube. PLAN: 1. Continue anti-platelet therapy, statin drug for LDL goal less than 100. 2. Adjust antihypertensives for stable blood pressure parameters, would not resume minoxidil in this setting. Jason Turner M.D. DR: BILL JOB#: [id number] CC:
[2019-02-22] VITALS: BP 98/56
[2019-02-22 04:00] VITALS: BP 98/55
[2019-02-22] MEDS: NovoLOG Insulin Flexpen SUBQ SCH ×4 (06:00→21:00)
[2019-02-22 08:00] VITALS: BP 96/56
[2019-02-22] MEDS: Lisinopril 10mg tab ORAL SCH ×2 (09:00→18:09)
[2019-02-22] MEDS: Labetalol 200mg tab ORAL SCH (09:00)
[2019-02-22] MEDS: Insulin NPH SUBQ SCH (09:00)
[2019-02-22] MEDS: Aspirin Baby 81mg ORAL SCH (10:19)
[2019-02-22] MEDS: Multivitamin w/Minerals tab ORAL SCH (10:19)
[2019-02-22] MEDS: Docusate 100mg tablet ORAL SCH ×2 (10:20→18:09)
[2019-02-22] MEDS: Heparin 5000 units/ml inj SUBQ SCH ×2 (10:22→21:09)
[2019-02-22 12:00] VITALS: BP 95/62
--- NOTE | 2019-02-22 14:54 | Pulmonology Progress Note ---
Assessment/Plan Assessment/Plan Pulmonary Progress Note Patient seen 02/21/2019 HPI: The patient is a 59-year-old female with history of multiple medical problems including CVA and left-sided weakness, history of respiratory failure. The patient presents for evaluation of chest pain. The patient was noted to have pain, squeezing but the patient notes the pain is nonradiating. The patient has not had recent cardiac workup and now admitted for further evaluation and intervention. The patient's laboratory data obtained and chemistry is notable for negative troponins. At this time, the patient's findings reviewed and discussed. No further cardiac w/u pending PAST MEDICAL HISTORY: Notable for respiratory failure, tracheostomy, history of diabetes, hypertension, hyperlipidemia, CVA with focal weakness, seizures, COPD, G-tube reversed, tracheostomy reversed. MEDICATIONS: Reviewed. ALLERGIES: Reviewed. SOCIAL HISTORY: The patient is essentially bedbound. Resides at [facility] PHYSICAL EXAMINATION: GENERAL: This is a well-developed female. VITAL SIGNS: Noted HEENT: Negative. NECK: Supple. No adenopathy. LUNGS: Moderate breath sounds and symmetric. CARDIAC: S1, S2. Regular rate and rhythm. ABDOMEN: Soft and nontender. EXTREMITIES: No cyanosis, clubbing, or edema. LABORATORY DATA: All reviewed. Electrolytes fairly negative. CBC essentially negative. Troponins are all negative. IMPRESSION: 1. Chest pain. 2. Prolonged psychiatric history. 3. CVA with left-sided weakness. 4. COPD on oxygen. 5. Psychiatric history, agitation. 6. Seizure disorder. RECOMMENDATIONS: Supportive care. Discharge back to intermediate No evidence of chest pain presently. Subjective ROS Limited/Unobtainable: No Allergies: Coded Allergies: No Known Allergies (Unverified , 08/08/16) Objective Last 24 Hour Vital Signs Date Time Temp Pulse Resp B/P (MAP) Pulse Ox O2 Delivery O2 Flow Rate FiO2 02/22/19 12:00 97.7 80 21 95/62 (73) 93 02/22/19 12:00 80 95/62 02/22/19 12:00 95 02/22/19 09:00 Nasal Cannula 2.0 02/22/19 09:00 78 96/56 02/22/19 09:00 96/56 02/22/19 08:09 99 Nasal Cannula 2.0 28 02/22/19 08:09 78 18 99 Nasal Cannula 2.0 28 02/22/19 08:00 97.7 78 22 96/56 (69) 98 02/22/19 08:00 89 02/22/19 05:39 81 98/55 02/22/19 04:00 79 02/22/19 04:00 98.0 81 18 98/55 (69) 99 02/22/19 00:00 84 98/56 02/22/19 00:00 80 02/22/19 00:00 98.6 84 18 98/56 (70) 97 02/21/19 21:36 97.7 02/21/19 21:24 98 Nasal Cannula 2.0 28 02/21/19 21:24 81 18 98 Nasal Cannula 3.0 32 02/21/19 21:22 84 18 100 3.0 32 81 18 98 02/21/19 21:00 80 101/57 02/21/19 21:00 Nasal Cannula 2.0 02/21/19 20:00 82 02/21/19 20:00 98.5 80 20 101/57 (72) 97 02/21/19 17:53 105/63 02/21/19 17:51 72 105/63 02/21/19 15:35 72 Intake and Output 02/21/19 02/22/19 18:59 06:59 Intake Total 510 ml Output Total 400 ml Balance 510 ml -400 ml Intake Oral 510 ml Output Urine Total 400 ml # Voids 4 # Bowel Movements 4 4 Microbiology Date/Time Source Procedure Growth Status 02/19/19 17:15 Nasal Nares MRSA Culture - Final NO METHICILLIN RESISTANT STAPH AUREUS... Complete 02/19/19 17:15 Rectum VRE Culture - Final NO VANCOMYCIN RESISTANT ENTEROCOCCUS ... Complete 02/19/19 17:15 Rectum - Final NO CARBAPENEM-RESISTANT ENTEROBACTERI... Complete Current Medications Medications (Trade) Dose Ordered Sig/Otto Route PRN Reason Start Time Stop Time Status Last Admin Dose Admin Acetaminophen (Tylenol) 650 mg Q4H PRN ORAL Mild Pain/Temp > 100.5 02/19/19 20:30 03/21/19 20:29 Acetaminophen/ Hydrocodone Bitart ([place] 5/325) 1 tab Q4H PRN ORAL PAIN 4-10 02/19/19 20:30 02/26/19 20:29 02/21/19 21:06 Al Hydroxide/Mg Hydroxide (Mylanta II) 30 ml Q4HR PRN ORAL DYSPEPSIA 02/19/19 20:30 03/21/19 20:29 02/20/19 16:29 Albuterol Sulfate (Proventil) 2.5 mg Q4H PRN HHN Shortness of Breath 02/19/19 20:30 02/24/19 20:29 02/21/19 21:16 Artificial Tears (Akwa-Tears) 2 drop BEDTIME PRN BOTH EYES Dry Eyes 02/19/19 22:00 03/21/19 21:59 Aspirin (ASA) 81 mg DAILY ORAL 02/20/19 10:00 03/22/19 09:59 02/22/19 10:19 Cetirizine HCl (ZyrTEC) 10 mg DAILY ORAL 02/20/19 09:00 03/22/19 08:59 02/22/19 10:20 Dextrose (Dextrose 50%) 25 ml Q30M PRN IV Hypoglycemia 02/19/19 23:30 03/21/19 23:29 Dextrose (Dextrose 50%) 50 ml Q30M PRN IV Hypoglycemia 02/19/19 23:30 03/21/19 23:29 Diphenhydramine HCl (Benadryl) 25 mg Q6H PRN ORAL Itching 02/19/19 20:30 03/21/19 20:29 Docusate Sodium (Colace) 100 mg BID ORAL 02/20/19 10:00 03/22/19 09:59 02/22/19 10:20 Heparin Sodium (Porcine) (Heparin 5000 units/ml) 5,000 units EVERY 12 HOURS SUBQ 02/20/19 09:00 03/22/19 08:59 02/22/19 10:22 Insulin Aspart (NovoLOG) BEFORE MEALS AND HS SUBQ 02/20/19 06:30 03/22/19 06:29 Insulin Human NPH (Humulin N) 10 units DAILY SUBQ 02/20/19 09:00 03/22/19 08:59 02/21/19 11:53 Labetalol HCl (Normodyne) 200 mg Q12HR ORAL 02/21/19 09:00 03/23/19 08:59 02/21/19 08:50 Labetalol HCl (Normodyne) 300 mg EVERY 6 HOURS ORAL 02/20/19 00:00 03/22/19 00:00 02/22/19 12:00 Levetiracetam (Keppra) 1,000 mg Q12HR ORAL 02/19/19 21:00 03/21/19 20:59 02/22/19 10:20 Lisinopril (Zestril) 10 mg BID ORAL 02/21/19 09:00 03/23/19 08:59 02/21/19 17:53 Lorazepam (Ativan) 0.5 mg Q6HR PRN ORAL For Anxiety 02/19/19 20:30 02/26/19 20:29 Magnesium Hydroxide (Mom) 30 ml DAILYPRN PRN ORAL Constipation 02/19/19 20:30 03/21/19 20:29 Multivitamins Therapeutic (Therapeutic Multivitamin) 1 ea DAILY ORAL 02/20/19 09:00 03/22/19 08:59 02/22/19 10:19 Ondansetron HCl (Zofran ODT) 4 mg Q6H PRN ORAL Nausea & Vomiting 02/19/19 20:30 03/21/19 20:29 Sodium Phosphate (Fleet's Sodium Phosl Enema) 133 ml DAILYPRN PRN RECTAL Constipation 02/19/19 20:30 03/21/19 20:29 02/21/19 17:53 Temazepam (Restoril) 15 mg BEDTIME PRN ORAL Insomnia 02/19/19 20:30 02/26/19 20:29 Jason Ortiz MD Feb 22, 2019 14:54
--- NOTE | 2019-02-22 14:55 | Pulmonology Progress Note ---
Assessment/Plan Assessment/Plan Pulmonary Progress Note HPI: The patient is a 59-year-old female with history of multiple medical problems including CVA and left-sided weakness, history of respiratory failure. The patient presents for evaluation of chest pain. The patient was noted to have pain, squeezing but the patient notes the pain is nonradiating. The patient has not had recent cardiac workup and now admitted for further evaluation and intervention. The patient's laboratory data obtained and chemistry is notable for negative troponins. At this time, the patient's findings reviewed and discussed. No further cardiac w/u pending. Patient refusing SNF transfer PAST MEDICAL HISTORY: Notable for respiratory failure, tracheostomy, history of diabetes, hypertension, hyperlipidemia, CVA with focal weakness, seizures, COPD, G-tube reversed, tracheostomy reversed. MEDICATIONS: Reviewed. ALLERGIES: Reviewed. SOCIAL HISTORY: The patient is essentially bedbound. Resides at SNF PHYSICAL EXAMINATION: GENERAL: This is a well-developed female. VITAL SIGNS: Noted HEENT: Negative. NECK: Supple. No adenopathy. LUNGS: Moderate breath sounds and symmetric. CARDIAC: S1, S2. Regular rate and rhythm. ABDOMEN: Soft and nontender. EXTREMITIES: No cyanosis, clubbing, or edema. LABORATORY DATA: All reviewed. Electrolytes fairly negative. CBC essentially negative. Troponins are all negative. IMPRESSION: 1. Chest pain. 2. Prolonged psychiatric history. 3. CVA with left-sided weakness. 4. COPD on oxygen. 5. Psychiatric history, agitation. 6. Seizure disorder. RECOMMENDATIONS: Supportive care. Discharge back to assisted No evidence of chest pain presently. Subjective ROS Limited/Unobtainable: No Allergies: Coded Allergies: No Known Allergies (Unverified , 08/08/16) Objective Last 24 Hour Vital Signs Date Time Temp Pulse Resp B/P (MAP) Pulse Ox O2 Delivery O2 Flow Rate FiO2 02/22/19 12:00 97.7 80 21 95/62 (73) 93 02/22/19 12:00 80 95/62 02/22/19 12:00 95 02/22/19 09:00 Nasal Cannula 2.0 02/22/19 09:00 78 96/56 02/22/19 09:00 96/56 02/22/19 08:09 99 Nasal Cannula 2.0 28 02/22/19 08:09 78 18 99 Nasal Cannula 2.0 28 02/22/19 08:00 97.7 78 22 96/56 (69) 98 02/22/19 08:00 89 02/22/19 05:39 81 98/55 02/22/19 04:00 79 02/22/19 04:00 98.0 81 18 98/55 (69) 99 02/22/19 00:00 84 98/56 02/22/19 00:00 80 02/22/19 00:00 98.6 84 18 98/56 (70) 97 02/21/19 21:36 97.7 02/21/19 21:24 98 Nasal Cannula 2.0 28 02/21/19 21:24 81 18 98 Nasal Cannula 3.0 32 02/21/19 21:22 84 18 100 3.0 32 81 18 98 02/21/19 21:00 80 101/57 02/21/19 21:00 Nasal Cannula 2.0 02/21/19 20:00 82 02/21/19 20:00 98.5 80 20 101/57 (72) 97 02/21/19 17:53 105/63 02/21/19 17:51 72 105/63 02/21/19 15:35 72 Intake and Output 02/21/19 02/22/19 18:59 06:59 Intake Total 510 ml Output Total 400 ml Balance 510 ml -400 ml Intake Oral 510 ml Output Urine Total 400 ml # Voids 4 # Bowel Movements 4 4 Microbiology Date/Time Source Procedure Growth Status 02/19/19 17:15 Nasal Nares MRSA Culture - Final NO METHICILLIN RESISTANT STAPH AUREUS... Complete 02/19/19 17:15 Rectum VRE Culture - Final NO VANCOMYCIN RESISTANT ENTEROCOCCUS ... Complete 02/19/19 17:15 Rectum - Final NO CARBAPENEM-RESISTANT ENTEROBACTERI... Complete Current Medications Medications (Trade) Dose Ordered Sig/Otto Route PRN Reason Start Time Stop Time Status Last Admin Dose Admin Acetaminophen (Tylenol) 650 mg Q4H PRN ORAL Mild Pain/Temp > 100.5 02/19/19 20:30 03/21/19 20:29 Acetaminophen/ Hydrocodone Bitart ([place] 5/325) 1 tab Q4H PRN ORAL PAIN 4-10 02/19/19 20:30 02/26/19 20:29 02/21/19 21:06 Al Hydroxide/Mg Hydroxide (Mylanta II) 30 ml Q4HR PRN ORAL DYSPEPSIA 02/19/19 20:30 03/21/19 20:29 02/20/19 16:29 Albuterol Sulfate (Proventil) 2.5 mg Q4H PRN HHN Shortness of Breath 02/19/19 20:30 02/24/19 20:29 02/21/19 21:16 Artificial Tears (Akwa-Tears) 2 drop BEDTIME PRN BOTH EYES Dry Eyes 02/19/19 22:00 03/21/19 21:59 Aspirin (ASA) 81 mg DAILY ORAL 02/20/19 10:00 03/22/19 09:59 02/22/19 10:19 Cetirizine HCl (ZyrTEC) 10 mg DAILY ORAL 02/20/19 09:00 03/22/19 08:59 02/22/19 10:20 Dextrose (Dextrose 50%) 25 ml Q30M PRN IV Hypoglycemia 02/19/19 23:30 03/21/19 23:29 Dextrose (Dextrose 50%) 50 ml Q30M PRN IV Hypoglycemia 02/19/19 23:30 03/21/19 23:29 Diphenhydramine HCl (Benadryl) 25 mg Q6H PRN ORAL Itching 02/19/19 20:30 03/21/19 20:29 Docusate Sodium (Colace) 100 mg BID ORAL 02/20/19 10:00 03/22/19 09:59 02/22/19 10:20 Heparin Sodium (Porcine) (Heparin 5000 units/ml) 5,000 units EVERY 12 HOURS SUBQ 02/20/19 09:00 03/22/19 08:59 02/22/19 10:22 Insulin Aspart (NovoLOG) BEFORE MEALS AND HS SUBQ 02/20/19 06:30 03/22/19 06:29 Insulin Human NPH (Humulin N) 10 units DAILY SUBQ 02/20/19 09:00 03/22/19 08:59 02/21/19 11:53 Labetalol HCl (Normodyne) 200 mg Q12HR ORAL 02/21/19 09:00 03/23/19 08:59 02/21/19 08:50 Labetalol HCl (Normodyne) 300 mg EVERY 6 HOURS ORAL 02/20/19 00:00 03/22/19 00:00 02/22/19 12:00 Levetiracetam (Keppra) 1,000 mg Q12HR ORAL 02/19/19 21:00 03/21/19 20:59 02/22/19 10:20 Lisinopril (Zestril) 10 mg BID ORAL 02/21/19 09:00 03/23/19 08:59 02/21/19 17:53 Lorazepam (Ativan) 0.5 mg Q6HR PRN ORAL For Anxiety 02/19/19 20:30 02/26/19 20:29 Magnesium Hydroxide (Mom) 30 ml DAILYPRN PRN ORAL Constipation 02/19/19 20:30 03/21/19 20:29 Multivitamins Therapeutic (Therapeutic Multivitamin) 1 ea DAILY ORAL 02/20/19 09:00 03/22/19 08:59 02/22/19 10:19 Ondansetron HCl (Zofran ODT) 4 mg Q6H PRN ORAL Nausea & Vomiting 02/19/19 20:30 03/21/19 20:29 Sodium Phosphate (Fleet's Sodium Phosl Enema) 133 ml DAILYPRN PRN RECTAL Constipation 02/19/19 20:30 03/21/19 20:29 02/21/19 17:53 Temazepam (Restoril) 15 mg BEDTIME PRN ORAL Insomnia 02/19/19 20:30 02/26/19 20:29 Jason Ortiz MD Feb 22, 2019 14:55
[2019-02-22] MEDS ORDERED: Mylanta II UD 30ml ORAL PRN (19:36)
[2019-02-22] MEDS ORDERED: Albuterol ud Inhalation HHN PRN (19:37)
[2019-02-22] MEDS ORDERED: Fleet's Enema 133ml RECTAL PRN (19:38)
[2019-02-22] MEDS ORDERED: HYDROcodone/Acetamin 5/325 tab ORAL PRN (19:38)
[2019-02-22] MEDS ORDERED: Milk of Magnesia 30ml Ud ORAL PRN (19:39)
[2019-02-22] MEDS ORDERED: LORazepam 0.5mg tab ORAL PRN (19:39)
[2019-02-22 20:00] VITALS: BP 110/68
[2019-02-22] MEDS ORDERED: Labetalol 200mg tab ORAL SCH (21:00)
[2019-02-22] MEDS: Artificial Tears 1.4% Op Soln BOTH EYES PRN (21:40)
[2019-02-23] VITALS (8 sets, daily range): BP systolic 80–116; BP diastolic 13–76
--- NOTE | 2019-02-23 00:15 | Progress Note ---
DATE: 02/22/2019 CARDIOLOGY PROGRESS NOTE SUBJECTIVE: No new complaints. No apparent shortness of breath. Chest pain is reproducible. PHYSICAL EXAMINATION: VITAL SIGNS: Reveal blood pressure in the range of 110/68, earlier 127/65. LUNGS: Clear. CARDIAC: Regular. ABDOMEN: Soft. No edema. Left-sided weakness. IMPRESSION: 1. Noncardiac chest pain. 2. Low range blood pressure due to medications. 3. History of hypertension. 4. History of cerebrovascular accident. PLAN: 1. Decrease dosing of labetalol. 2. Monitor blood pressure parameters. 3. No additional diagnostic cardiovascular study is presently indicated. Jason Turner M.D. DR: RUBY JOB#: [id number] CC:
[2019-02-23] MEDS: NovoLOG Insulin Flexpen SUBQ SCH ×4 (06:30→21:00)
[2019-02-23] MEDS ORDERED: Labetalol 200mg tab ORAL SCH (09:00)
[2019-02-23] MEDS: Heparin 5000 units/ml inj SUBQ SCH ×2 (09:37→21:43)
[2019-02-23] MEDS: Docusate 100mg tablet ORAL SCH ×2 (09:38→18:38)
[2019-02-23] MEDS: Multivitamin w/Minerals tab ORAL SCH (09:38)
[2019-02-23] MEDS: Aspirin Baby 81mg ORAL SCH (09:39)
[2019-02-23] MEDS: Insulin NPH SUBQ SCH (09:40)
[2019-02-23] MEDS: Lisinopril 10mg tab ORAL SCH ×2 (09:40→18:41)
--- NOTE | 2019-02-23 15:29 | Cardiology Report ---
APPROVED REPORT EKG Measurement Heart [id number] [place] 172P68 [id number] Normal sinus rhythm Normal ECG
--- NOTE | 2019-02-23 15:33 | Cardiology Report ---
APPROVED REPORT EKG Measurement Heart [id number] [place] 172P60 [id number] Normal sinus rhythm Cannot rule out Anterior infarct, age undetermined Abnormal ECG
--- NOTE | 2019-02-23 19:04 | Pulmonology Progress Note ---
Assessment/Plan Assessment/Plan Pulmonary Progress Note HPI: The patient is a 59-year-old female with history of multiple medical problems including CVA and left-sided weakness, history of respiratory failure. The patient presents for evaluation of chest pain. The patient was noted to have pain, squeezing but the patient notes the pain is nonradiating. The patient has not had recent cardiac workup and now admitted for further evaluation and intervention. The patient's laboratory data obtained and chemistry is notable for negative troponins. At this time, the patient's findings reviewed and discussed. No further cardiac w/u pending. Patient refusing SNF transfer PAST MEDICAL HISTORY: Notable for respiratory failure, tracheostomy, history of diabetes, hypertension, hyperlipidemia, CVA with focal weakness, seizures, COPD, G-tube reversed, tracheostomy reversed. MEDICATIONS: Reviewed. ALLERGIES: Reviewed. SOCIAL HISTORY: The patient is essentially bedbound. Resides at SNF PHYSICAL EXAMINATION: GENERAL: This is a well-developed female. VITAL SIGNS: Noted HEENT: Negative. NECK: Supple. No adenopathy. LUNGS: Moderate breath sounds and symmetric. CARDIAC: S1, S2. Regular rate and rhythm. ABDOMEN: Soft and nontender. EXTREMITIES: No cyanosis, clubbing, or edema. LABORATORY DATA: All reviewed. Electrolytes fairly negative. CBC essentially negative. Troponins are all negative. IMPRESSION: 1. Chest pain. 2. Prolonged psychiatric history. 3. CVA with left-sided weakness. 4. COPD on oxygen. 5. Psychiatric history, agitation. 6. Seizure disorder. RECOMMENDATIONS: Supportive care. Discharge back to correction No evidence of chest pain presently. Subjective ROS Limited/Unobtainable: No Allergies: Coded Allergies: No Known Allergies (Unverified , 08/08/16) Objective Last 24 Hour Vital Signs Date Time Temp Pulse Resp B/P (MAP) Pulse Ox O2 Delivery O2 Flow Rate FiO2 02/23/19 16:00 98.5 78 20 91/70 (77) 98 02/23/19 12:00 98.4 76 18 104/59 (74) 97 02/23/19 09:00 Room Air 02/23/19 08:00 98.0 82 20 99/76 (84) 98 02/23/19 07:45 86 18 98 Nasal Cannula 2.0 28 02/23/19 07:45 99 Nasal Cannula 2.0 28 02/23/19 04:00 97.9 100 18 110/68 (82) 96 02/23/19 02:53 106/66 (79) 02/23/19 02:00 96 20 80/45 (57) 96 02/23/19 00:40 98.6 89 16 112/57 (75) 100 02/22/19 21:00 Nasal Cannula 2.0 02/22/19 20:00 98.4 85 19 110/68 (82) 100 02/22/19 19:18 82 18 98 Nasal Cannula 2.0 28 02/22/19 19:18 98 Nasal Cannula 2.0 28 Intake and Output 02/22/19 02/23/19 18:59 06:59 Intake Total 240 ml Balance 240 ml Intake Oral 240 ml # Voids 2 # Bowel Movements 1 4 Current Medications Medications (Trade) Dose Ordered Sig/Otto Route PRN Reason Start Time Stop Time Status Last Admin Dose Admin Acetaminophen (Tylenol) 650 mg Q4H PRN ORAL Mild Pain/Temp > 100.5 02/22/19 19:36 03/24/19 19:35 Acetaminophen/ Hydrocodone Bitart ([place] 5/325) 1 tab Q4H PRN ORAL PAIN 4-10 02/22/19 19:38 03/01/19 19:37 Al Hydroxide/Mg Hydroxide (Mylanta II) 30 ml Q4H PRN ORAL DYSPEPSIA 02/22/19 19:36 03/24/19 19:35 Albuterol Sulfate (Proventil) 2.5 mg Q4H PRN HHN Shortness of Breath 02/22/19 19:37 02/27/19 19:36 Artificial Tears (Akwa-Tears) 2 drop BEDTIME PRN BOTH EYES Dry Eyes 02/22/19 21:00 03/21/19 21:59 02/22/19 21:40 Aspirin (ASA) 81 mg DAILY ORAL 02/23/19 09:00 03/22/19 09:59 02/23/19 09:39 Cetirizine HCl (ZyrTEC) 10 mg DAILY ORAL 02/23/19 09:00 03/22/19 08:59 02/23/19 09:38 Dextrose (Dextrose 50%) 25 ml Q30M PRN IV Hypoglycemia 02/22/19 20:00 03/21/19 23:29 Dextrose (Dextrose 50%) 50 ml Q30M PRN IV Hypoglycemia 02/22/19 20:00 03/21/19 23:29 Diphenhydramine HCl (Benadryl) 25 mg Q6H PRN ORAL Itching 02/22/19 19:38 03/24/19 19:37 Docusate Sodium (Colace) 100 mg BID ORAL 02/23/19 09:00 03/22/19 09:59 02/23/19 18:38 Heparin Sodium (Porcine) (Heparin 5000 units/ml) 5,000 units EVERY 12 HOURS SUBQ 02/22/19 21:00 03/22/19 08:59 02/23/19 09:37 Insulin Aspart (NovoLOG) BEFORE MEALS AND HS SUBQ 02/22/19 21:00 03/22/19 06:29 Insulin Human NPH (Humulin N) 10 units DAILY SUBQ 02/23/19 09:00 03/22/19 08:59 02/23/19 09:40 Labetalol HCl (Normodyne) 200 mg Q12HR ORAL 02/23/19 09:00 03/25/19 08:59 Levetiracetam (Keppra) 1,000 mg Q12HR ORAL 02/22/19 21:00 03/21/19 20:59 02/23/19 09:38 Lisinopril (Zestril) 10 mg BID ORAL 02/23/19 09:00 03/23/19 08:59 Lorazepam (Ativan) 0.5 mg Q6H PRN ORAL For Anxiety 02/22/19 19:39 03/01/19 19:38 Magnesium Hydroxide (Mom) 30 ml DAILYPRN PRN ORAL Constipation 02/22/19 19:39 03/24/19 19:38 Multivitamins Therapeutic (Therapeutic Multivitamin) 1 ea DAILY ORAL 02/23/19 09:00 03/22/19 08:59 02/23/19 09:38 Ondansetron HCl (Zofran ODT) 4 mg Q6H PRN ORAL Nausea & Vomiting 02/22/19 20:30 03/21/19 20:29 Sodium Phosphate (Fleet's Sodium Phosl Enema) 133 ml DAILYPRN PRN RECTAL Constipation 02/22/19 19:38 03/24/19 19:37 Temazepam (Restoril) 15 mg BEDTIME PRN ORAL Insomnia 02/22/19 21:00 02/26/19 20:29 Jason Ortiz MD Feb 23, 2019 19:04
--- NOTE | 2019-02-23 20:30 | Progress Note ---
DATE: 02/23/2019 CARDIOLOGY PROGRESS NOTE SUBJECTIVE: No complaints of chest pain. Awaiting disposition to residential facility. No shortness of breath. OBJECTIVE: VITAL SIGNS: Blood pressure 104/59 earlier, now 91/70, heart rate 78, respiratory rate 20. LUNGS: Clear. CARDIAC: Regular. Normal S1, S2. There is a 1/4 diastolic decrescendo. ABDOMEN: Soft. EXTREMITIES: There is no edema. IMPRESSION: 1. Noncardiac chest pain. 2. Low range blood pressure. 3. Degenerative aortic valve disease with mild regurgitation. 4. Cerebrovascular disease with history of CVA. PLAN: 1. Decrease antihypertensives. 2. Check lipid panel. 3. Add statin drug for LDL goal less than 70. Jason Turner M.D. DR: HALLEY JOB#: [id number] CC:
[2019-02-23] MEDS: Artificial Tears 1.4% Op Soln BOTH EYES PRN (21:40)
[2019-02-24 01:31] VITALS: BP 101/57
[2019-02-24 04:30] VITALS: BP 125/66
[2019-02-24] MEDS: NovoLOG Insulin Flexpen SUBQ SCH ×2 (06:30→11:30)
[2019-02-24 08:00] VITALS: BP 119/72
[2019-02-24 09:20] LABS: BASOPHILS % (AUTO) 1.1 % (0.0-2.0); EOSINOPHILS % (AUTO) 5.3 % (0.0-3.0); HEMATOCRIT 35.5 % (37.0-47.0); HEMOGLOBIN 11.3 G/DL (12.0-16.0); LYMPHOCYTES % (AUTO) 41.8 % (20.0-45.0); MEAN CORPUSCULAR VOLUME 89 FL (80-99); MONOCYTES % (AUTO) 10.5 % (1.0-10.0); NEUTROPHILS % (AUTO) 41.2 % (45.0-75.0); PLATELET COUNT 217 K/UL (150-450); RED BLOOD COUNT 3.99 M/UL (4.20-5.40); RED CELL DISTRIBUTION WIDTH 12.4 % (11.6-14.8); WHITE BLOOD COUNT 4.3 K/UL (4.8-10.8)
[2019-02-24] MEDS: Multivitamin w/Minerals tab ORAL SCH (09:20)
[2019-02-24] MEDS: Aspirin Baby 81mg ORAL SCH (09:21)
[2019-02-24] MEDS: Docusate 100mg tablet ORAL SCH (09:21)
[2019-02-24] MEDS: Lisinopril 10mg tab ORAL SCH (09:22)
[2019-02-24] MEDS: Heparin 5000 units/ml inj SUBQ SCH (09:24)
[2019-02-24] MEDS: Insulin NPH SUBQ SCH (09:24)
[2019-02-24 09:39] LABS: ALANINE AMINOTRANSFERASE 17 U/L (12-78); ALBUMIN 3.6 G/DL (3.4-5.0); ALBUMIN/GLOBULIN RATIO 0.9 (1.0-2.7); ALKALINE PHOSPHATASE 50 U/L (46-116); ANION GAP 8 mmol/L (5-15); ASPARTATE AMINO TRANSFERASE 16 U/L (15-37); BILIRUBIN,TOTAL 0.4 MG/DL (0.2-1.0); BLOOD UREA NITROGEN 19 mg/dL (7-18); CALCIUM 9.4 MG/DL (8.5-10.1); CARBON DIOXIDE 29 MMOL/L (21-32); CHLORIDE 105 MMOL/L (98-107); CHOLESTEROL 174 MG/DL (< 200); HDL CHOLESTEROL 55 MG/DL (40-60); SODIUM 141 MMOL/L (136-145); TRIGLYCERIDES 89 MG/DL (30-150)
[2019-02-24 12:00] VITALS: BP 136/66
[2019-02-24 16:00] VITALS: BP 109/41
--- NOTE | 2019-02-24 20:39 | Discharge Summary ---
Discharge Summary Discharge Summary _ DATE OF ADMISSION: 02/19/2019 DATE OF DISCHARGE: 02/24/2019 DISCHARGED BY: Dr. Ngo REASON FOR ADMISSION: 59 years old female with multiple medical problems, including CVA with left- sided weakness, history of respiratory failure, chronically oxygen dependent, hypertension, seizure disorder, diabetes mellitus, dysphagia, G-tube, urinary incontinence, presented for evaluation due to chest pain. Pain reported as nonradiating and squeezing. Initial troponin negative. ProBNP 24. EKG revealed sinus rhythm, no acute ischemic changes. Chest x-ray demonstrated no acute cardiopulmonary pathology. Patient did not have recent cardiac work-up and admitted to telemetry floor for further evaluation and management. CONSULTANTS: consultant nurse [facility] COURSE: Patient admitted to telemetry floor. Cardiology consult was requested. Serial troponin were negative. EKG revealed no acute ischemic changes. Patient was ruled out for acute myocardial infarction. Echocardiogram revealed preserved ejection fraction of 60 to 65% with no evidence of wall motion abnormality. Mild left ventricular hypertrophy. Right ventricular systolic pressure of 27. Focal aortic valve sclerosis with adequate cusp excursion. Mild aortic regurgitation. Lipid panel revealed borderline LDL 101 with stable triglycerides and total cholesterol. Venous duplex bilateral lower extremity revealed no evidence of acute DVT. Supplemental oxygen titrated to keep pulse oximetry above 92%. Handheld nebulizing treatment with bronchodilator provided as needed. Antiplatelet therapy with aspirin continued. Blood pressure was managed with beta-tyrone and STACEY inhibitor. DVT prophylaxis provided. Per consultant nurse, chest pain was noncardiac. Antihypertensive regimen was optimized due to low range of blood pressure. Statin was added for LDL goal less than 70, as per consultant nurse recommendation. Blood sugar was managed with long-acting insulin and sliding scale of short- acting insulin as needed. Seizure precaution maintained. Keppra continued. Pain management was addressed as needed. Bowel regimen instituted. Supportive care provided. Patient clinically stabilized and was ready for transfer to correction facility for continuation of care. FINAL DIAGNOSES: Noncardiac chest pain Hypertension Degenerative aortic valve disease with mild regurgitation Cerebrovascular disease with history of CVA with left-sided weakness COPD , oxygen dependent Psychiatric history and agitation Seizure disorder Diabetes mellitus DISCHARGE MEDICATIONS: See Medication Reconciliation list. DISCHARGE INSTRUCTIONS: Patient was discharged to the correction facility. Follow up with medical doctor at the facility. I have been assigned to dictate discharge summary for this account. I was not involved in the patient's management. Joaquina Gill NP Feb 24, 2019 20:39
--- NOTE | 2019-02-25 02:30 | Progress Note ---
DATE: 02/24/2019 CARDIOLOGY PROGRESS NOTE SUBJECTIVE: No new complaints. No chest pain or shortness of breath. Baseline hemiparesis on the left. OBJECTIVE: VITAL SIGNS: Blood pressure range 119/72 to 136/66, heart rate 72 to 78, respiratory rate 18, and afebrile. LUNGS: Clear. CARDIAC: Regular. ABDOMEN: Soft. EXTREMITIES: No edema. IMPRESSION AND PLAN: 1. Stable cardiovascular parameters. 2. Current medication regimen appropriate. 3. Discharge planning. Jason Turner M.D. DR: HALLEY JOB#: [id number] CC:
--- NOTE | 2019-02-26 15:22 | Diagnostic Imaging Report ---
APPROVED REPORT CPT Code: 73501 Present Symptoms Shortness of breath BILATERAL: Imaging reveals a patent deep venous system bilaterally. There is no evidence of thrombus within the common femoral, superficial femoral, popliteal or tibial segments. The greater saphenous veins are within normal limits. Doppler indicates normal spontaneous flow within these segments.
--- NOTE | 2019-03-01 11:43 | Coder Physician Query ---
Clarification is required for compliance, coding accuracy, and to reflect severity of illness for this patient Dear Dr. JACKSON Date: 03/01/19 Manager Route/CDS' Name: ROSALIE GALLOWAY QUERY FOR CHEST PAIN - REASON FOR ADMISSION: 59 years old female with multiple medical problems, including CVA with left- sided weakness, history of respiratory failure, chronically oxygen dependent, hypertension, seizure disorder, diabetes mellitus, dysphagia, G-tube, urinary incontinence, presented for evaluation due to chest pain. HOSPITAL COURSE: Patient admitted to telemetry floor. Per call manager, chest pain was noncardiac. Serial troponin were negative. EKG revealed no acute ischemic changes. Patient was ruled out for acute myocardial infarction. Echocardiogram revealed preserved ejection fraction o IMPRESSION FROM CARDIOLOGY: Low clinical suspicion for acute coronary insufficiency, more likely suspect acute GI or pleuritic etiology in view of her body habitus and history of DVT. Please document the suspected etiology of Chest Pain: [] Aortic dissection [] Acute myocardial infarction [] Acute Coronary Syndrome [] Pericarditis [x] Anxiety [] Cancer [] Pneumonia [] Costochondritis [] Pneumothorax [] GERD/Esophagitis [] Pulmonary embolism [] Other: [] Unable to determine MAYRA JACKSON M.D. Please also document in your Progress Notes and/or Discharge Summary and indicate if the condition was present on admission. LONAD
== END 2019-02-24 16:00 | DRG 756 ==
LOC: EDSEX 13:47 → EDBD 13:47 → EMR 14:30 → 2E 15:53 → EDBEDREQ 16:00 → 3E 02-22 19:28
DX: F41.9 Anxiety disorder, unspecified (principal); R07.89 Other chest pain; I10 Essential (primary) hypertension; I69.354 Hemiplegia and hemiparesis following cerebral infarction affecting left non-dominant side; G40.909 Epilepsy, unspecified, not intractable, without status epilepticus; I35.1 Nonrheumatic aortic (valve) insufficiency; J44.9 Chronic obstructive pulmonary disease, unspecified; Z99.81 Dependence on supplemental oxygen; R45.1 Restlessness and agitation; E11.9 Type 2 diabetes mellitus without complications; F99 Mental disorder, not otherwise specified; E78.5 Hyperlipidemia, unspecified; E66.9 Obesity, unspecified
CPT/HCPCS: 36415; 71045; 80053; 80061; 80299; 82550; 82553; 82962; 83880; 84484; 85025; 85362; 85610; 85730; 87081; 93005; 93306; 93970; 94640; 94664; 96374; 99285; J1815; J2405